=== PATIENT | male | born 1945 | race Caucasian/White ===

== ENCOUNTER 2021-10-11 09:26 | Emergency (ER) | payer MEDICARE, MEDICAID ==
[~2021-10-11] VITALS: Ht 177.8 cm; Wt 75.0 kg
[2021-10-11 09:50] VITALS: BP 127/105
== END 2021-10-11 11:54 | disposition home or self-care (01) ==
LOC: EMS 09:35
DX: T69.9XXA Effect of reduced temperature, unspecified, initial encounter (principal); F17.210 Nicotine dependence, cigarettes, uncomplicated
CPT/HCPCS: 99283; Z7502